=== PATIENT | female | born 1995 | race Caucasian/White ===

== ENCOUNTER 2017-07-22 18:08 | Emergency (ER) | payer OTHER ==
[~2017-07-22] VITALS: Ht 172.7 cm; Wt 61.0 kg
[2017-07-23 02:31] LABS: CLARITY URINE CLEAR (CLEAR); COLOR URINE YELLOW (YELLOW); KETONES URINE NEGATIVE (NEGATIVE); LEUKOCYTE ESTERASE URINE 2+ (NEGATIVE); NITRITE URINE NEGATIVE (NEGATIVE); OCCULT BLOOD URINE NEGATIVE (NEGATIVE); PH URINE 7.5 (4.5-8.0); PROTEIN URINE NEGATIVE (NEGATIVE); SPECIFIC GRAVITY URINE 1.004 (1.005-1.030); UROBILINOGEN URINE 0.2 E.U./dL (0.2-1.0)
[2017-07-23] MEDS ORDERED: PHENAZOPYRIDINE HCL 200MG TABLET PO ONE (03:00)
[2017-07-23] MEDS ORDERED: CEPHALEXIN 500MG CAPSULE PO ONE (03:00)
[2017-07-23 03:18] VITALS: BP 101/51
== END 2017-07-23 03:27 | disposition home or self-care (01) ==
LOC: ER 20:12
DX: N39.0 Urinary tract infection, site not specified (principal)
CPT/HCPCS: 81003; 81025; 99283; Z7610

== ENCOUNTER 2017-08-04 11:00 | Emergency (ER) | payer OTHER ==
[~2017-08-04] VITALS: Ht 172.7 cm; Wt 61.0 kg
[2017-08-04] MEDS ORDERED: IBUPROFEN 600MG TABLET PO STA (12:08)
[2017-08-04 13:03] LABS: CLARITY URINE CLEAR (CLEAR); COLOR URINE YELLOW (YELLOW); KETONES URINE TRACE (NEGATIVE); LEUKOCYTE ESTERASE URINE NEGATIVE (NEGATIVE); NITRITE URINE NEGATIVE (NEGATIVE); OCCULT BLOOD URINE NEGATIVE (NEGATIVE); PH URINE 5.5 (4.5-8.0); PROTEIN URINE NEGATIVE (NEGATIVE); SPECIFIC GRAVITY URINE 1.012 (1.005-1.030); UROBILINOGEN URINE 0.2 E.U./dL (0.2-1.0)
[2017-08-04 13:51] LABS: BASOPHILS % 0.5 % (0.0-2.0); EOSINOPHILS % 0.4 % (0.0-5.0); HEMATOCRIT. 40.7 % (36.0-48.0); HEMOGLOBIN. 13.3 g/dL (12.0-16.0); LYMPHOCYTES % 18.6 % (20.0-50.0); MEAN CORPUSCULAR HEMOGLOBIN 28.1 pg (28.0-32.0); MEAN CORPUSCULAR VOLUME 85.7 fL (81.0-99.0); MEAN PLATELET VOLUME 7.6 fl (7.4-10.4); NEUTROPHILS % 76.5 % (40.0-76.0); PLATELET 316 x1000/uL (130-400); RED BLOOD CELL COUNT 4.75 mill/uL (4.2-5.4); RED CELL DISTRIBUTION WIDTH 13.3 % (11.6-14.6)
[2017-08-04 14:03] LABS: CHLORIDE 105 mEq/L (98-107)
[2017-08-04 15:16] VITALS: BP 92/55
== END 2017-08-04 15:20 | disposition home or self-care (01) ==
LOC: ER 11:53
DX: R30.0 Dysuria (principal); R10.30 Lower abdominal pain, unspecified
CPT/HCPCS: 36415; 74176; 80053; 81003; 81025; 85025; 99285